=== PATIENT | male | born 1970 ===

== ENCOUNTER 2024-11-23 17:47 | Inpatient (IN) | payer SELFPAY ==
[~2024-11-23] VITALS: Ht 170.2 cm; Wt 85.6 kg
[2024-11-23 19:21] LABS: BASOPHILS ABSOLUTE AUTO 0.04 K/mm3 (0.00-0.23); BASOPHILS PERCENT AUTO 1 % (0-2); EOSINOPHILS ABSOLUTE AUTO 0.04 K/mm3 (0.00-0.68); EOSINOPHILS PERCENT AUTO 1 % (0-6); Hematocrit 41.5 % (37.0-53.0); Hemoglobin 14.3 g/dL (13.5-17.5); IMMATURE GRAN ABSOLUTE AUTO 0.03 K/mm3 (0.00-0.10); IMMATURE GRAN PERCENT AUTO 0 % (0-1); LYMPHOCYTES ABSOLUTE AUTO 1.47 K/mm3 (0.84-5.20); LYMPHOCYTES PERCENT AUTO 17 % (21-46); MONOCYTES ABSOLUTE AUTO 0.51 K/mm3 (0.16-1.47); MONOCYTES PERCENT AUTO 6 % (4-13); Mean Corpuscular HGB Conc 34.5 g/dL (31.5-36.5); Mean Corpuscular Volume 99 fL (80-100); NEUTROPHILS ABSOLUTE AUTO 6.49 K/mm3 (1.96-9.15); NEUTROPHILS PERCENT AUTO 76 % (41-73); NRBC ABSOLUTE 0.00 K/mm3 (0.00-0.02); NRBC Auto 0.0 /100 WBC (0.0-0.2); Platelet Count 209 K/mm3 (150-400); RDW Coefficient Variation 14.2 % (11.7-14.2); RDW Standard Deviation 51.1 fL (35.1-46.3)
[2024-11-23 19:48] LABS: Alanine Aminotransfer (ALT/SGP 42.0 U/L (12-78); Albumin, Blood 4.2 g/dL (3.4-5.0); Albumin/Globulin Ratio 1.3 (0.8-1.8); Anion Gap 7.0 mmol/L (3-11); Aspartate Aminotrans (AST/SGOT 64.0 U/L (12-37); Bilirubin, Total 2.4 mg/dL (0.1-1.0); Blood Urea Nitrogen 12.0 mg/dL (8-24); CO2, Blood 26.0 mmol/L (21-32); Calcium, Blood 9.1 mg/dL (8.5-10.1); Chloride, Blood 104.0 mmol/L (98-108); Creatinine, Blood 1.23 mg/dL (0.60-1.20); Globulin, Blood 3.2 g/dL (2.2-4.0); Glucose, Blood 101.0 mg/dL (70-99); Potassium, Blood 4.1 mmol/L (3.5-5.5); Sodium, Blood 133.0 mmol/L (136-145); Total Protein, Blood 7.4 g/dL (6.4-8.2)
[2024-11-23] MEDS ORDERED: Ketorolac Tromethamine 30mg Vial IV ONE (21:40)
[2024-11-23] MEDS ORDERED: CefTRIAXone Sodium 2,000 MG in NS 100 ML IV ONE (21:40)
[2024-11-23] MEDS ORDERED: MetroNIDAZOLE 500MG/NS 100 ml 100 ML IV ONE (21:40)
[2024-11-23] MEDS ORDERED: NS 1,000 ML IV ONE (22:00)
[2024-11-23] MEDS ORDERED: FLU VACC TS2025-26(6MOS UP)/PF 45 MCG/0.5 ML SYRINGE IM SCH (22:05)
[2024-11-23] MEDS ORDERED: Ondansetron HCl 2 MG / ML 2ML Vial IV PRN (22:05)
[2024-11-23] MEDS ORDERED: FentaNYL Citrate 50 MCG/ML 2 ML Injection IV PRN (22:05)
[2024-11-23 22:52] VITALS: BP 134/87
[2024-11-23] MEDS ORDERED: NS 1,000 ML IV SCH (23:05)
[2024-11-23 23:52] VITALS: BP 104/70
[2024-11-24 04:49] VITALS: BP 128/88
[2024-11-24 05:03] LABS: BASOPHILS ABSOLUTE AUTO 0.04 K/mm3 (0.00-0.23); BASOPHILS PERCENT AUTO 1 % (0-2); EOSINOPHILS ABSOLUTE AUTO 0.03 K/mm3 (0.00-0.68); EOSINOPHILS PERCENT AUTO 0 % (0-6); Hematocrit 37.4 % (37.0-53.0); Hemoglobin 13.0 g/dL (13.5-17.5); IMMATURE GRAN ABSOLUTE AUTO 0.02 K/mm3 (0.00-0.10); IMMATURE GRAN PERCENT AUTO 0 % (0-1); LYMPHOCYTES ABSOLUTE AUTO 1.27 K/mm3 (0.84-5.20); LYMPHOCYTES PERCENT AUTO 19 % (21-46); MONOCYTES ABSOLUTE AUTO 0.47 K/mm3 (0.16-1.47); MONOCYTES PERCENT AUTO 7 % (4-13); Mean Corpuscular HGB Conc 34.8 g/dL (31.5-36.5); Mean Corpuscular Volume 101 fL (80-100); NEUTROPHILS ABSOLUTE AUTO 4.98 K/mm3 (1.96-9.15); NEUTROPHILS PERCENT AUTO 73 % (41-73); NRBC ABSOLUTE 0.00 K/mm3 (0.00-0.02); NRBC Auto 0.0 /100 WBC (0.0-0.2); Platelet Count 170 K/mm3 (150-400); RDW Coefficient Variation 13.9 % (11.7-14.2); RDW Standard Deviation 51.0 fL (35.1-46.3)
[2024-11-24 05:29] LABS: Alanine Aminotransfer (ALT/SGP 38.0 U/L (12-78); Albumin, Blood 3.5 g/dL (3.4-5.0); Albumin/Globulin Ratio 1.1 (0.8-1.8); Anion Gap 9.0 mmol/L (3-11); Aspartate Aminotrans (AST/SGOT 73.0 U/L (12-37); Bilirubin, Total 2.0 mg/dL (0.1-1.0); Blood Urea Nitrogen 15.0 mg/dL (8-24); CO2, Blood 23.0 mmol/L (21-32); Calcium, Blood 8.3 mg/dL (8.5-10.1); Chloride, Blood 106.0 mmol/L (98-108); Creatinine, Blood 1.26 mg/dL (0.60-1.20); Globulin, Blood 3.3 g/dL (2.2-4.0); Glucose, Blood 97.0 mg/dL (70-99); Potassium, Blood 3.8 mmol/L (3.5-5.5); Sodium, Blood 134.0 mmol/L (136-145); Total Protein, Blood 6.8 g/dL (6.4-8.2)
--- NOTE | 2024-11-24 06:31 | NUR ---
SHIFT SUMMARY: Pt admitted for diverticulitis and is a full code. Is alert and able to make needs known. ADLs have been IND. pain has been managed with PRN medications. Iv to right AC is patent with dressing that is CDI. mark noted sinus in the 90s with no events.
[2024-11-24 07:44] VITALS: BP 117/82
[2024-11-24] MEDS ORDERED: Pantoprazole Sodium 40 MG Injection IV SCH (09:00)
[2024-11-24] MEDS ORDERED: FLUT1DIS5 INH (09:47)
[2024-11-24 11:10] VITALS: BP 124/87
[2024-11-24 15:30] VITALS: BP 113/79
--- NOTE | 2024-11-24 18:19 | NUR ---
NOTE PT ALERT. UP AD TALAT. MEDCIATED WITH FENTAYL X1. VSS. PT TOLERATING ICE CHIPS WELL. NO INCREASE IN ABD PAIN. BED LOW AND LOCKED. CALL LIGHT WITH IN REACH.
[2024-11-24] MEDS ORDERED: Formoterol/Mometasone MDI 5/200 mcg 13 GM INH SCH (18:35)
[2024-11-24 19:29] VITALS: BP 138/86
[2024-11-24] MEDS ORDERED: Piperacillin/Tazobactam Sod 4.5 GM in NS 100 ML IV SCH (22:12)
[2024-11-24] MEDS ORDERED: NS 250 ML IV PRN (22:35)
[2024-11-25 00:02] VITALS: BP 115/75
[2024-11-25 03:08] VITALS: BP 121/81
[2024-11-25 05:07] LABS: Hematocrit 36.7 % (37.0-53.0); Hemoglobin 13.0 g/dL (13.5-17.5); Mean Corpuscular HGB Conc 35.4 g/dL (31.5-36.5); Mean Corpuscular Volume 100 fL (80-100); NRBC ABSOLUTE 0.00 K/mm3 (0.00-0.02); NRBC Auto 0.0 /100 WBC (0.0-0.2); Platelet Count 193 K/mm3 (150-400); RDW Coefficient Variation 13.5 % (11.7-14.2); RDW Standard Deviation 49.3 fL (35.1-46.3)
[2024-11-25 05:45] LABS: Alanine Aminotransfer (ALT/SGP 35.0 U/L (12-78); Albumin, Blood 3.3 g/dL (3.4-5.0); Albumin/Globulin Ratio 0.9 (0.8-1.8); Anion Gap 9.0 mmol/L (3-11); Aspartate Aminotrans (AST/SGOT 62.0 U/L (12-37); Bilirubin, Total 1.7 mg/dL (0.1-1.0); Blood Urea Nitrogen 14.0 mg/dL (8-24); CO2, Blood 23.0 mmol/L (21-32); Calcium, Blood 8.8 mg/dL (8.5-10.1); Chloride, Blood 105.0 mmol/L (98-108); Creatinine, Blood 1.13 mg/dL (0.60-1.20); Globulin, Blood 3.5 g/dL (2.2-4.0); Glucose, Blood 81.0 mg/dL (70-99); Potassium, Blood 3.9 mmol/L (3.5-5.5); Sodium, Blood 133.0 mmol/L (136-145); Total Protein, Blood 6.8 g/dL (6.4-8.2)
[2024-11-25 09:20] VITALS: BP 116/79
[2024-11-25] MEDS ORDERED: OxyCODONE 5 mg/Acetamin 325 mg TABLET PO PRN (09:45)
[2024-11-25] MEDS ORDERED: ALBU90OI INH (10:24)
[2024-11-25] MEDS ORDERED: Percocet 5-3251 EACH PO (16:01)
[2024-11-25] MEDS ORDERED: AMOCLA875 PO (16:02)
[2024-11-25] MEDS ORDERED: MIRALAX17 GM PO (16:02)
[2024-11-25] MEDS ORDERED: VISBIOME 112.51 EACH PO (16:02)
--- NOTE | 2024-11-25 16:15 | NUR ---
DISCHARGE SUMMARY PT DISCHARGED HOME. NEW RX FAXED TO [facility] PER PT REQUEST. DISCHARGE INSTRUCTION REVIEWED WITH PT. HARD RX PROVIDED FOR CONTROLLED SUBSTANCES. PT ABLE TO AMBULATE INDEPENDENTLY DOWN TO PERSONAL VEHICLE. IV REMOVED BY CNA2, SITE APPEARS WNL.
== END 2024-11-25 16:10 | disposition home or self-care (01) | DRG 872 ==
LOC: ER 17:47 → MEDS 21:55 → ENPENDDIS 11-25 15:17 → MEDS 11-25 16:10
PROVIDERS: Internal Medicine; Student in an Organized Health Care Education/Training Program; ADMIT Internal Medicine
DX: A41.9 Sepsis, unspecified organism (principal); K57.20 Diverticulitis of large intestine with perforation and abscess without bleeding; E87.1 Hypo-osmolality and hyponatremia; R74.01 Elevation of levels of liver transaminase levels; E80.6 Other disorders of bilirubin metabolism; E66.3 Overweight; J45.909 Unspecified asthma, uncomplicated; Z79.899 Other long term (current) drug therapy; Z68.25 Body mass index [BMI] 25.0-25.9, adult
CPT/HCPCS: 36415; 74177; 80053; 82947; 83605; 83690; 83880; 85025; 85027; 93005; 93010; 94640; 94664; 96374-59; 99285-25; A9270; J0696; J1885; J2470; J2543; J3010; J7030; J7050; Q9967